=== PATIENT | female | born 1990 | race Caucasian/White ===

== ENCOUNTER 2024-06-13 06:12 | Day surgery (SDC) | payer OTHER, SELFPAY ==
[2024-06-11 10:34] LABS: % Basophils 1.1 % (0-2); % Eosinophils 4.5 % (0-6); % Immature Granulocytes 0.1 % (0-0.5); % Lymphocytes 32.9 % (20.5-51.1); % Monocytes 7.3 % (1.7-9.3); % Neutrophils 54.1 % (42.2-75.2); Absolute Basophils 0.1 10^3/uL (0-0.2); Absolute Eosinophils 0.3 10^3/uL (0-0.7); Absolute Lymphocytes 2.4 10^3/uL (1.2-3.4); Absolute Monocytes 0.5 10^3/uL (0.1-0.6); Absolute Neutrophils 3.9 10^3/uL (1.4-6.5); Hematocrit 40.1 % (37.0-47.0); Hemoglobin 13.5 g/dL (12.0-16.0); Mean Corp Hgb Conc. 33.7 g/dL (33.0-37.0); Mean Corpuscular Hgb 30.3 pg (27.0-31.0); Mean Corpuscular Volume 89.9 fL (81.0-99.0); Mean Platelet Volume 10.6 fL (7.4-10.4); Nucleated Red Blood Cells % 0 %; Platelet Count 363 10^3/uL (130-400); Red Blood Cell Count 4.46 10^6/uL (4.20-5.40); Red Cell Dist. Width 13.4 % (11.5-14.5); White Blood Cell Count 7.3 10^3/uL (4.8-10.8)
[2024-06-13] VITALS (8 sets, daily range): BP systolic 114–135; BP diastolic 71–89; BMI 42.8
[2024-06-13] MEDS: NORMOSOL-R 1000 IV (09:30)
[2024-06-13] MEDS: TYLENOL 1000 MG PO (09:36)
[2024-06-13] MEDS: ROXICODONE 5 MG PO (13:28)
== END 2024-06-13 13:59 | disposition home or self-care (01) ==
LOC: SDS 06:12
PROVIDERS: ATTENDING PHYSICIAN Otolaryngology; FAMILY PHYSICIAN Family Medicine
DX: J03.01 Acute recurrent streptococcal tonsillitis (principal); J35.8 Other chronic diseases of tonsils and adenoids
CPT/HCPCS: 42826; 88304; 36415; 85025

== ENCOUNTER 2024-07-30 15:11 | Emergency (ER) | payer OTHER, SELFPAY ==
[2024-07-30 15:12] VITALS: BP 159/86
--- NOTE | 2024-07-30 15:29 | ED.PDOC.TRB ---
ED Provider Triage
-
Patient seen by provider in Triage?: Seen in Triage
33yoF here with pleuritic pain underneath bilateral ribs that began today. Also c/o headache. Sent here by urgent care for concern for a PE. Currently on control.
[2024-07-30 15:49] LABS: % Basophils 0.6 % (0-2); % Eosinophils 1.7 % (0-6); % Immature Granulocytes 0.3 % (0-0.5); % Lymphocytes 16.2 % (20.5-51.1); % Neutrophils 75.2 % (42.2-75.2); Absolute Basophils 0.1 10^3/uL (0-0.2); Absolute Eosinophils 0.2 10^3/uL (0-0.7); Absolute Lymphocytes 1.5 10^3/uL (1.2-3.4); Absolute Monocytes 0.5 10^3/uL (0.1-0.6); Absolute Neutrophils 6.7 10^3/uL (1.4-6.5); Hematocrit 37.5 % (37.0-47.0); Hemoglobin 12.9 g/dL (12.0-16.0); Mean Corp Hgb Conc. 34.4 g/dL (33.0-37.0); Mean Corpuscular Hgb 29.8 pg (27.0-31.0); Mean Corpuscular Volume 86.6 fL (81.0-99.0); Nucleated Red Blood Cells % 0 %; Platelet Count 355 10^3/uL (130-400); Red Blood Cell Count 4.33 10^6/uL (4.20-5.40); Red Cell Dist. Width 12.8 % (11.5-14.5); White Blood Cell Count 8.9 10^3/uL (4.8-10.8)
[2024-07-30 16:02] LABS: ALT (SGPT) 25 U/L (0-35); AST (SGOT) 20 U/L (14-36); Albumin 3.9 g/dl (3.5-5.0); Alkaline Phosphatase 55 U/L (38-126); Blood Urea Nitrogen 10 mg/dl (7-17); Carbon Dioxide 26 mmol/L (22-30); Chloride 101 mmol/L (98-107); Glucose 114 mg/dl (70-99); Potassium 4.2 mmol/L (3.5-5.1); Sodium 137 mmol/L (135-145); Total Bilirubin 0.4 mg/dl (0.2-1.3); Total Protein 6.7 g/dl (6.3-8.2); eGFR > 60.00
[2024-07-30 16:08] LABS: D-Dimer 0.35 ug/mlFEU (0.00-0.50)
--- NOTE | 2024-07-30 16:40 | ED.GENMED ---
History of Present Illness
General
Chief Complaint: Breathing Problem
Source: patient
Time Seen by Provider: 07/30/24 16:23
History of Present Illness
History of Present Illness:
33yoF with a history of anxiety presenting with her for evaluation of pleuritic pain. Patient reports pain underneath bilateral ribs that began earlier today. Pain is worse with deep breathing. She picked up her child earlier today which
also worsened the pain. She denies any injuries to the area. She was seen at urgent care prior to arrival and was sent to the ED for concern for possible PE. Patient denies any fevers, cough, vomiting, abdominal pain, chest pain. Patient is
currently taking oral contraceptives.
Phy Exam
General Physical Exam
General Presentation: well appearing and no apparent distress
General age: appears stated age
General Skin: warm and dry
General Habitus: normal
General Mental: alert
General Hydration: appears well hydrated
Cardiovascular Exam
Cardiovascular Exam: regular rate/rhythm and no murmur
Pulmonary Exam
Pulmonary Exam: lungs clear, no respiratory distress, no rales, chest non tender, no crackles and no wheezing
Gastrointestinal Exam
Gastrointestinal Exam: non tender, soft and non distended
[place] Coma Scale
Eye Opening: Spontaneous
Verbal Response: Oriented
Motor Response: Obeys Commands
GCS Total Score: 15
Skin Exam
Skin Exam: normal color and warm/dry
Psychiatric Exam
Psychiatric Exam: normal mood/affect
Course
Orders/Labs/Results
Orders:
Orders
07/30/24 15:16
Electrocardiogram (*1) Urgent
Reason for Study: Shortness of Breath
EKG- Treatment ONCE
CXR2 [CR Chest - 2 Views ] Urgent
Comment:
Reason For Exam: sob with low grade temp
07/30/24 15:31
Complete Blood Count/With Diff Urgent
Comprehensive Metabolic Panel Urgent
D-Dimer Urgent
Abnormal Lab Results
07/30/24
15:31
Absolute Neuts (auto) 6.7 H 10^3/uL
(1.4-6.5)
Lymphocytes % 16.2 L %
(20.5-51.1)
Glucose 114 H mg/dl
(70-99)
07/30/24 15:31
07/30/24 15:31
Vital Signs
Initial and Last Documented VS:
Initial Vital Signs
Temp Pulse Resp BP Pulse Ox
100.0 F 112 16 159/86 99
07/30/24 15:12 07/30/24 15:12 07/30/24 15:12 07/30/24 15:12 07/30/24 15:12
Last Documented Vital Signs
Temp Pulse Resp BP Pulse Ox
99.1 F 98 16 130/81 100
07/30/24 17:01 07/30/24 17:01 07/30/24 17:01 07/30/24 17:01 07/30/24 17:01
MDM/Problems Addressed
Differential Diagnosis Includes:
33yoF here with atraumatic pleuritic bilateral rib pain x 1 day. Sent here from urgent care for concern for PE. Patient is mildly tachycardic in triage although she admits to being anxious. Temp 100.0. Oxygen saturation 99% on room air. She is
well-appearing in no acute distress. There is no reproducible tenderness on exam. Differential diagnosis includes but is not limited to: Pneumonia, pneumothorax, pleural effusion, pleurisy, costochondritis
Initial ED plan: Check CBC, CMP, D-dimer, EKG, and chest x-ray.
*EKG
Interpreted by ED Provider?: Yes
EKG Intrepretation Date: 07/30/24
Heart Rate: 104
Rate: tachycardiac
Rhythm: sinus
[place]: normal axis
Interval: normal interval
QRS Pattern: normal QRS
Ischemia: no ischemia
*Critical Care Note
Total Time (30-74mins, 75-104mins- exclusive of procedures): Not Applicable
Update Note
Update Note:
Labs overall unremarkable. D-dimer normal making PE very unlikely. EKG shows sinus tachycardia with a heart rate of 104. EKG is otherwise normal. Chest x-ray is clear. No indication for admission at this time. Pain is possibly musculoskeletal.
Supportive care discussed. She was advised to follow-up with her PCP and ED return precautions discussed. She expressed understanding and is agreeable to plan. She was discharged in stable condition.
ED Attending Note
-
Portions of this chart may have been created with voice recognition software.� Occasional wrong word or��sound alike� substitutions may have occurred due to the inherent limitations of voice recognition software.
Discharge Plan
Departure
Patient Disposition: Home (Routine Discharge)
Date of Disposition: 07/30/24
Time of Disposition: 16:41
Patient with high blood pressure during this ER visit?: Yes
Discharge Problem:
Pleuritic pain
Instructions: Chest Pain (DC)
Prescriptions:
No Action
cetirizine [Zyrtec] 10 mg Tablet
10 mg PO DAILY
norgestimate-ethinyl estradiol [Ortho Tri-Cyclen (28)] 0.18/0.215/0.25 mg-35 mcg (28) Tablet
1 tab PO DAILY
Antibiotic
PO DIRECTED
Activity Restrictions/Additional Instructions:
Apply heat to affected area. Take Tylenol and ibuprofen as needed for pain.
Please follow-up with your family doctor. Return to the ER with any new or worsening symptoms.
Interventions
Interventions:
*Risk Screen - Suicide Last Done: 07/30/24 15:12
*Neglect/Abuse Screening Last Done: 07/30/24 15:12
*Nursing Disposition Last Done: 07/30/24 17:01
ED- Cardiac Assessment Last Done: 07/30/24 17:01
ED- Pulmonary Assessment Last Done: 07/30/24 17:01
Discharge Date and Time
Discharge Date/Time: 07/30/24 17:02
Print Language: [id number]
[2024-07-30 17:01] VITALS: BP 130/81
== END 2024-07-30 17:02 | disposition home or self-care (01) ==
LOC: EMR 15:11
PROVIDERS: EMERGENCY PHYSICIAN Emergency Medicine; FAMILY PHYSICIAN Family Medicine
DX: R07.81 Pleurodynia (principal); F41.9 Anxiety disorder, unspecified
CPT/HCPCS: 99283; 71046; 80053; 85025; 85379; 93005

== ENCOUNTER → 2025-04-05 07:15 | Outpatient (REF) | payer OTHER, SELFPAY | LOC: HWRCS 07:15 | PROVIDERS: ATTENDING PHYSICIAN Internal Medicine Cardiovascular Disease; FAMILY PHYSICIAN Family Medicine | DX: R06.02 Shortness of breath (principal); R07.89 Other chest pain | CPT/HCPCS: 93306 ==

== ENCOUNTER → 2025-04-08 07:45 | Outpatient (REF) | payer OTHER, SELFPAY | LOC: HWRAD 07:45 | PROVIDERS: ATTENDING PHYSICIAN Nurse Practitioner Family; FAMILY PHYSICIAN Family Medicine | DX: E07.89 Other specified disorders of thyroid (principal) | CPT/HCPCS: 76536 ==

== ENCOUNTER → 2025-04-12 13:54 | Outpatient (REF) | payer OTHER, SELFPAY | LOC: RCS 13:54 | PROVIDERS: ATTENDING PHYSICIAN Internal Medicine Cardiovascular Disease; FAMILY PHYSICIAN Family Medicine | DX: R06.02 Shortness of breath (principal); R07.89 Other chest pain | CPT/HCPCS: 93017 ==